=== PATIENT | female | born 1955 | race Caucasian/White ===

== ENCOUNTER 2018-12-25 18:13 | Emergency (ER) | payer BC ==
[2018-12-25] MEDS ORDERED: Aspirin 81 MG Tab.Chew PO ONE (18:30)
[2018-12-25] MEDS ORDERED: Sodium Chloride 0.9% 10 ML Syringe FLUSH PRN (18:30)
--- NOTE | 2018-12-25 18:45 | EDM.PDOC ---
ED HPI GENERAL MEDICAL PROBLEM - General Chief Complaint: Chest Pain Stated Complaint: CHEST PAIN/SOB Time Seen by Provider: 12/25/18 18:37 Source of Information: Reports: Patient, RN Notes Reviewed - History of Present Illness INITIAL COMMENTS - FREE TEXT/NARRATIVE: 63-year-old female comes in with history of achy chest discomfort for the past 4 days. She describes this as a mild ache left anterior chest that has become somewhat more bothersome today and then now some radiation to her left posterior shoulder blade area. The pain has not been severe she states she might be slightly short of breath. No cough fever or chills. No abdominal pain nausea vomiting. No history of hypertension, diabetes or known heart disease. She does not smoke. Left Chest Pain Score (Numeric/FACES): 3 - Related Data Allergies Allergy/AdvReac Type Severity Reaction Status Date / Time Penicillins Allergy Other Verified 12/25/18 18:26 Past Medical History Cardiovascular History: Reports: High Cholesterol - Past Surgical History HEENT Surgical History: Reports: Naso-Sinus Surgery Female Surgical History: Reports: Hysterectomy Other Female Surgeries/Procedures: Uterine CA Social & Family History - Tobacco Use Smoking Status *Q: Never Smoker - Caffeine Use Caffeine Use: Reports: Coffee - Recreational Drug Use Recreational Drug Use: No ED ROS GENERAL - Review of Systems Review Of Systems: See Below Constitutional: Denies: Fever, Chills, Diaphoresis HEENT: Reports: No Symptoms Respiratory: Reports: Shortness of Breath (Slight). Denies: Pleuritic Chest Pain, Cough Cardiovascular: Reports: Chest Pain GI/Abdominal: Denies: Abdominal Pain, Nausea, Vomiting Musculoskeletal: Reports: Shoulder Pain. Denies: Neck Pain, Arm Pain (Posterior ), Leg Pain Skin: Reports: No Symptoms Neurological: Reports: No Symptoms ED EXAM, GENERAL - Physical Exam Exam: See Below General Appearance: Alert, No Apparent Distress Eye Exam: Bilateral Eye: PERRL Head: Atraumatic. No: Facial Swelling Neck: Supple, Full Range of Motion Respiratory/Chest: No Respiratory Distress, Lungs Clear, Normal Breath Sounds, Chest Non-Tender Cardiovascular: Regular Rate, Rhythm GI/Abdominal: Soft, Non-Tender. No: Guarding Back Exam: No: CVA Tenderness (L), CVA Tenderness (R) Extremities: Normal Inspection. No: Leg Pain, Increased Warmth, Redness Neurological: Alert, Oriented, No Motor/Sensory Deficits EKG INTERPRETATION EKG Date: 12/25/18 Rhythm: NSR [place]: Normal P-Wave: Present QRS: Normal ST-T: Normal Course - Vital Signs Last Recorded V/S: Last Vital Signs Temp 98.2 F 12/25/18 18:22 Pulse 89 12/25/18 18:22 Resp 18 12/25/18 18:22 BP 162/93 H 12/25/18 18:22 Pulse Ox 94 L 12/25/18 18:22 - Orders/Labs/Meds Orders: Active Orders 24 hr Category Date Time Status EKG 12 Lead [EKG Documentation Completion] [] STAT Care 12/25/18 18:36 Active Peripheral IV Care [RC] . DIRECTED Care 12/25/18 18:30 Active Peripheral IV Insertion Adult [OM.PC] Routine Oth 12/25/18 18:30 Ordered Labs: Laboratory Tests 12/25/18 12/25/18 Range/Units 18:50 18:50 WBC 9.84 (3.98-10.04) K/mm3 RBC 4.54 (3.98-5.22) M/mm3 Hgb 13.4 (11.2-15.7) gm/dl Hct 40.6 (34.1-44.9) % MCV 89.4 (79.4-94.8) fl MCH 29.5 (25.6-32.2) pg MCHC 33.0 (32.2-35.5) g/dl RDW Std Deviation 45.0 (36.4-46.3) fL Plt Count 288 (182-369) K/mm3 MPV 10.1 (9.4-12.3) fl Neut % (Auto) 69.8 (34.0-71.1) % Lymph % (Auto) 22.0 (19.3-51.7) % [place] % (Auto) 6.9 (4.7-12.5) % Eos % (Auto) 0.7 (0.7-5.8) Baso % (Auto) 0.5 (0.1-1.2) % Neut # (Auto) 6.87 H (1.56-6.13) K/mm3 Lymph # (Auto) 2.16 (1.18-3.74) K/mm3 [place] # (Auto) 0.68 H (0.24-0.36) K/mm3 Eos # (Auto) 0.07 (0.04-0.36) K/mm3 Baso # (Auto) 0.05 (0.01-0.08) K/mm3 Sodium 140 (136-145) mEq/L Potassium 3.6 (3.5-5.1) mEq/L Chloride 107 (98-107) mEq/L Carbon Dioxide 22 (21-32) mEq/L Anion Gap 14.6 (5-15) BUN 23 H (7-18) mg/dL Creatinine 1.0 (0.55-1.02) mg/dL Est Cr Clr Drug Dosing 55.31 mL/min Estimated GFR (MDRD) 56 (>60) mL/min BUN/Creatinine Ratio 23.0 H (14-18) Glucose 99 (80-115) mg/dL Calcium 9.5 (8.5-10.1) mg/dL Total Bilirubin 0.4 (0.2-1.0) mg/dL AST 18 (15-37) U/L ALT 29 (14-59) U/L Alkaline Phosphatase 111 (46-116) U/L Troponin I < 0.017 (0.00-0.056) ng/mL C-Reactive Protein 1.6 H* (<1.0) mg/dL Total Protein 7.4 (6.4-8.2) g/dl Albumin 3.7 (3.4-5.0) g/dl Globulin 3.7 gm/dL Albumin/Globulin Ratio 1.0 (1-2) Meds: Medications Discontinued Medications Generic Name Dose Route Start Last Admin Trade Name Freq PRN Reason Stop Dose Admin Aspirin 324 mg 12/25/18 18:30 12/25/18 19:34 Aspirin PO 12/25/18 18:31 324 mg ONETIME ONE Administration Sodium Chloride 10 ml 12/25/18 18:30 12/25/18 19:35 Saline Flush FLUSH 10 ml ASDIRECTED PRN Administration Keep Vein Open - Re-Assessments/Exams Free Text/Narrative Re-Assessment/Exam: 12/26/18 11:33. EKG was nl, CXR trop nl. She remained in sinus rythm, no ectopy, discharge instr. as documented. Departure - Departure Time of Disposition: 19:58 Disposition: Home, Self-Care 01 Condition: Fair Clinical Impression: Atypical chest pain Instructions: Nonspecific Chest Pain, [id number] Referrals: Aylin Nolasco MD [Primary Care Provider] - Forms: ED Department Discharge Additional Instructions: Advil or ibuprofen 2-3 times daily as needed for discomfort, you may also alternate ice and heat to chest wall as needed. See Dr. Orly Gonzales as planned. Return to ED as needed if symptoms worsening in any way - My Orders Last 24 Hours: My Active Orders 12/25/18 18:30 Peripheral IV Care [RC] . DIRECTED Peripheral IV Insertion Adult [OM.PC] Routine 12/25/18 18:36 EKG 12 Lead [EKG Documentation Completion] [RC] STAT - Assessment/Plan Last 24 Hours: My Active Orders 12/25/18 18:30 Peripheral IV Care [RC] . DIRECTED Peripheral IV Insertion Adult [OM.PC] Routine 12/25/18 18:36 EKG 12 Lead [EKG Documentation Completion] [RC] STAT
--- NOTE | 2018-12-26 10:16 | CR ---
Chest: Portable view of the chest was obtained. Comparison: No prior chest x-ray. Heart size and mediastinum are within normal limits for portable technique. Lungs are clear with no acute parenchymal change. Bony structures are grossly intact. Impression: 1. Nothing acute is seen on portable chest x-ray. Diagnostic code #1
== END 2018-12-25 20:10 | disposition home or self-care (01) ==
LOC: JD.ED 18:13
DX: R07.89 Other chest pain (principal); Z88.0 Allergy status to penicillin
CPT/HCPCS: 36415; 71045; 80053; 84484; 85025; 86140; 93005; 99285; A9270

== ENCOUNTER 2021-01-15 11:56 | Emergency (ER) | payer BC ==
[2021-01-15] MEDS ORDERED: Ondansetron 4 MG/2 ML SDV IVPUSH ONE (12:38)
[2021-01-15] MEDS ORDERED: Sodium Chloride 0.9% 10 ML Syringe FLUSH PRN (12:38)
[2021-01-15] MEDS ORDERED: Ketorolac 30 MG/ML SDV IVPUSH ONE (12:38)
--- NOTE | 2021-01-15 12:48 | EDM.PDOC ---
ED HPI GENERAL MEDICAL PROBLEM - General Chief Complaint: Syncope Stated Complaint: SYNCOPE YESTERDAY Time Seen by Provider: 01/15/21 12:22 Source of Information: Reports: Patient, RN Notes Reviewed History Limitations: Reports: No Limitations - History of Present Illness INITIAL COMMENTS - FREE TEXT/NARRATIVE: Patient is a 65-year-old female who presents to the ER with her for the evaluation of a syncopal episode yesterday. Patient states that she felt somewhat unwell at the beginning of the day yesterday, some slight nausea generalized body aches, and a slight cough. States she went to [place] at about 11 AM, and went to [facility] to pray and got a little bit lightheaded for which she states is not atypical for her. She states she made her way to the car, got in to the car and then did end up passing out. She states this has never happened before. She states that when she woke back up, her was concerned because her body stiffened a little bit, and he was not sure she was having any sort of seizure activity. States that when she woke back up, she knew exactly where she was, what was going on, and did not wet or soiled herself. She had a slight headache after that, with some associated nausea and states that she kind of just took it easy yesterday. She ate some crackers and a burger yesterday but still is feeling slightly nauseous, has a generalized headache, and other generalized symptoms today. Patient states she is not had any issues with low blood pressure, low heart rate, or any sort of low blood sugars that she is aware of. She does state that her daughter has been diagnosed with POTS, and she thinks that she very well could have something to this effect but has never had any sort of fast heart rhythm either. Primary care provider is Aylin Villalba. Patient also states she has not been vaccinated for COVID-19 but she does not think she has been around anyone that is been sick. 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 - Physical Exam Exam: See Below Exam Limited By: No Limitations General Appearance: Alert, WD/WN, No Apparent Distress Eye Exam: Bilateral Eye: EOMI, Normal Inspection, PERRL Head Exam: Atraumatic, Normocephalic Respiratory/Chest: No Respiratory Distress, Lungs Clear, Normal Breath Sounds, No Accessory Muscle Use, Chest Non-Tender Cardiovascular: Normal Peripheral Pulses, Regular Rate, Rhythm, No Edema GI/Abdominal: Normal Bowel Sounds, Non-Tender, No Distention, No Mass Neuro Exam (Abbreviated): Alert, Oriented, Normal Cognition, No Motor/Sensory Deficits Extremities: Normal Inspection, Normal Capillary Refill Psychiatric: Normal Affect, Normal Mood Skin Exam: Warm, Dry, Intact, Normal Color, No Rash Course - Vital Signs Last Recorded V/S: Last Vital Signs Temp 97.0 F 01/15/21 12:05 Pulse 90 01/15/21 12:05 Resp 20 01/15/21 12:05 BP 175/98 H 01/15/21 12:05 Pulse Ox 99 01/15/21 12:05 - Orders/Labs/Meds Orders: Active Orders 24 hr Category Date Time Status Holter Monitor 48 Hours [RC] .PRN Care 01/15/21 14:03 Ordered Peripheral IV Care [RC] . DIRECTED Care 01/15/21 12:38 Ordered Sodium Chloride 0.9% [Saline Flush] Med 01/15/21 12:38 Ordered 10 ml FLUSH ASDIRECTED PRN Peripheral IV Insertion Adult [OM.PC] Routine Oth 01/15/21 12:38 Ordered Medication Orders Sodium Chloride (Sodium Chloride 0.9% 10 Ml Syringe) 10 ml FLUSH ASDIRECTED PRN PRN Reason: Keep Vein Open Last Admin: 01/15/21 12:55 Dose: 10 ml Documented by: BRIGIDO Labs: Laboratory Tests 10/10/2901/15/21 01/15/21 Range/Units 12:20 12:39 12:39 WBC 6.65 (3.98-10.04) K/mm3 RBC 4.61 (3.98-5.22) M/mm3 Hgb 13.6 (11.2-15.7) gm/dl Hct 42.3 (34.1-44.9) % MCV 91.8 (79.4-94.8) fl MCH 29.5 (25.6-32.2) pg MCHC 32.2 (32.2-35.5) g/dl RDW Std Deviation 45.7 (36.4-46.3) fL Plt Count 262 (182-369) K/mm3 MPV 10.7 (9.4-12.3) fl Neut % (Auto) 66.6 (34.0-71.1) % Lymph % (Auto) 25.7 (19.3-51.7) % [place] % (Auto) 6.6 (4.7-12.5) % Eos % (Auto) 0.6 L (0.7-5.8) Baso % (Auto) 0.3 (0.1-1.2) % Neut # (Auto) 4.43 (1.56-6.13) K/mm3 Lymph # (Auto) 1.71 (1.18-3.74) K/mm3 [place] # (Auto) 0.44 H (0.24-0.36) K/mm3 Eos # (Auto) 0.04 (0.04-0.36) K/mm3 Baso # (Auto) 0.02 (0.01-0.08) K/mm3 PT 10.3 (9.7-12.0) SECONDS INR 0.93 Sodium (136-145) mEq/L Potassium (3.5-5.1) mEq/L Chloride (98-107) mEq/L Carbon Dioxide (21-32) mEq/L Anion Gap (5-15) BUN (7-18) mg/dL Creatinine (0.55-1.02) mg/dL Est Cr Clr Drug Dosing mL/min Estimated GFR (MDRD) (>60) mL/min BUN/Creatinine Ratio (14-18) Glucose (70-99) mg/dL Calcium (8.5-10.1) mg/dL Total Bilirubin (0.2-1.0) mg/dL AST (15-37) U/L ALT (14-59) U/L Alkaline Phosphatase (46-116) U/L C-Reactive Protein (<1.0) mg/dL Total Protein (6.4-8.2) g/dl Albumin (3.4-5.0) g/dl Globulin gm/dL Albumin/Globulin Ratio (1-2) SARS-CoV-2 RNA (IDANIA) Negative (NEGATIVE) 01/15/21 Range/Units 12:39 WBC (3.98-10.04) K/mm3 RBC (3.98-5.22) M/mm3 Hgb (11.2-15.7) gm/dl Hct (34.1-44.9) % MCV (79.4-94.8) fl MCH (25.6-32.2) pg MCHC (32.2-35.5) g/dl RDW Std Deviation (36.4-46.3) fL Plt Count (182-369) K/mm3 MPV (9.4-12.3) fl Neut % (Auto) (34.0-71.1) % Lymph % (Auto) (19.3-51.7) % [place] % (Auto) (4.7-12.5) % Eos % (Auto) (0.7-5.8) Baso % (Auto) (0.1-1.2) % Neut # (Auto) (1.56-6.13) K/mm3 Lymph # (Auto) (1.18-3.74) K/mm3 [place] # (Auto) (0.24-0.36) K/mm3 Eos # (Auto) (0.04-0.36) K/mm3 Baso # (Auto) (0.01-0.08) K/mm3 PT (9.7-12.0) SECONDS INR Sodium 140 (136-145) mEq/L Potassium 3.9 (3.5-5.1) mEq/L Chloride 105 (98-107) mEq/L Carbon Dioxide 25 (21-32) mEq/L Anion Gap 13.9 (5-15) BUN 20 H (7-18) mg/dL Creatinine 0.9 (0.55-1.02) mg/dL Est Cr Clr Drug Dosing 59.89 mL/min Estimated GFR (MDRD) > 60 (>60) mL/min BUN/Creatinine Ratio 22.2 H (14-18) Glucose 95 (70-99) mg/dL Calcium 9.3 (8.5-10.1) mg/dL Total Bilirubin 0.4 (0.2-1.0) mg/dL AST 16 (15-37) U/L ALT 31 (14-59) U/L Alkaline Phosphatase 102 (46-116) U/L C-Reactive Protein 1.0 (<1.0) mg/dL Total Protein 7.5 (6.4-8.2) g/dl Albumin 3.8 (3.4-5.0) g/dl Globulin 3.7 gm/dL Albumin/Globulin Ratio 1.0 (1-2) SARS-CoV-2 RNA (IDANIA) (NEGATIVE) Meds: Medications Generic Name Dose Route Start Last Admin Trade Name Freq PRN Reason Stop Dose Admin Sodium Chloride 10 ml 01/15/21 12:38 01/15/21 12:55 Sodium Chloride 0.9% 10 Ml Syringe FLUSH 10 ml ASDIRECTED PRN Administration Keep Vein Open Discontinued Medications Generic Name Dose Route Start Last Admin Trade Name Freq PRN Reason Stop Dose Admin Ketorolac Tromethamine 30 mg 01/15/21 12:38 01/15/21 12:55 Ketorolac 30 Mg/Ml Sdv IVPUSH 01/15/21 12:39 30 mg ONETIME ONE Administration Ondansetron HCl 4 mg 01/15/21 12:38 01/15/21 12:53 Ondansetron 4 Mg/2 Ml Sdv IVPUSH 01/15/21 12:39 4 mg ONETIME ONE Administration - Re-Assessments/Exams Free Text/Narrative Re-Assessment/Exam: 01/15/21 12:48 Patient presents to the ER for evaluation of her syncopal episode x1 yesterday. Patient has been swabbed for COVID-19, will get some basic labs for initial management. The patient states she did go to the [facility] drive-through testing site and her rapid test was negative for today's purposes. She will get some IV Toradol and IV Zofran for headache and nausea. 01/15/21 13:52 Patient's CBC and CMP are unremarkable, her COVID-19 screen was negative for today's purposes. Since she did have a rapid state test was negative, and a 1 hour PCR test that was negative at today's visit. I will try to have her quarantine herself away from others for the next few days and retest possibly Tuesday morning and see if she receives another negative test. For her syncopal episodes, nothing has been uncovered at today's visit that would point us in any one direction however with her daughter having been diagnosed with POTS we will go ahead and order a 48-hour Holter monitor to be obtained to see if there is anything on a cardiac standpoint that could explain what is going on. We will have her try to increase her fluid intake over the next few days and take it easy and have her follow-up next week if things are not much better. Departure - Departure Time of Disposition: 14:04 Disposition: Home, Self-Care 01 Condition: Good Clinical Impression: Viral URI Syncope Qualifiers: Syncope type: vasovagal syncope Qualified Code(s): R55 - Syncope and collapse - Discharge Information *PRESCRIPTION DRUG MONITORING PROGRAM REVIEWED*: No *COPY OF PRESCRIPTION DRUG MONITORING REPORT IN PATIENT ROSEMARIE: No Instructions: Syncope, [id number] Referrals: Aylin Nolasco MD [Primary Care Provider] - 1 Week (Late next week or early week of Jan 26) Forms: ED Department Discharge Additional Instructions: You were evaluated in the ER today for your syncopal episode, and multiple generalized symptoms. Your COVID-19 test did come back negative, but sometimes these are false negatives. These Covid screens are only about 60% accurate; and it is common to test negative initially but then test positive a few days later. Due to this, we recommend that you try to isolate yourself away from others, and get retested for COVID-19 in about 3 or 4 days. There are multiple sites that can do this, there is a drive-through clinic by the [facility], there is a walk-in clinic and our Covid clinic that can help you with these. Your laboratory evaluation demonstrated no acute abnormalities. There is no good answer as to what caused your syncope yesterday while you are in charge. However you have been sent home with a Holter monitor for ongoing management to monitor your heart rhythm over the next 48 hours to see if it was or could have been related to cardiac issues. You will need to follow-up with your regular care provider in a roughly 1 week's time, preferably late next week or early the week of January 26 for management of this. I would recommend that you try to get another Covid screen on Tuesday, January 19, 2021. If you should receive a third negative result, then COVID is unlikely the cause of this as well. Continue all other medications as previously prescribed. Do not hesitate to return to the ER at any time if symptoms change or worsen. Sepsis Event Note (ED) - Evaluation Sepsis Screening Result: No Definite Risk - Focused Exam Vital Signs: Vital Signs Temp Pulse Resp BP Pulse Ox 01/15/21 12:05 97.0 F 90 20 175/98 H 99 - My Orders Last 24 Hours: My Active Orders 01/15/21 12:38 Peripheral IV Care [RC] . DIRECTED Sodium Chloride 0.9% [Saline Flush] 10 ml FLUSH ASDIRECTED PRN Peripheral IV Insertion Adult [OM.PC] Routine 01/15/21 14:03 Holter Monitor 48 Hours [RC] .PRN - Assessment/Plan Last 24 Hours: My Active Orders 01/15/21 12:38 Peripheral IV Care [RC] . DIRECTED Sodium Chloride 0.9% [Saline Flush] 10 ml FLUSH ASDIRECTED PRN Peripheral IV Insertion Adult [OM.PC] Routine 01/15/21 14:03 Holter Monitor 48 Hours [RC] .PRN
== END 2021-01-15 14:25 | disposition home or self-care (01) ==
LOC: JD.ED 11:56
DX: R55 Syncope and collapse (principal); J06.9 Acute upper respiratory infection, unspecified; Z88.0 Allergy status to penicillin; Z20.822 Contact with and (suspected) exposure to COVID-19
CPT/HCPCS: 36415; 80053; 85025; 85610; 86140; 87635; 93225; 93226; 96374; 96375; 99284; J1885; J2405; U0002

== ENCOUNTER 2022-08-28 11:27 | Emergency (ER) | payer MEDICARE ==
[2022-08-28] MEDS ORDERED: Iopamidol 755 Mg/ML 100 ML Bottle IVPUSH ONE (11:57)
[2022-08-28] MEDS ORDERED: Sodium Chloride 0.9% 100 ML IV SCH (12:00)
[2022-08-28] MEDS: Sodium Chloride 0.9% 10 ML Syringe FLUSH PRN ×2 (12:00→12:21)
== END 2022-08-28 14:00 | disposition home or self-care (01) ==
LOC: JD.ED 11:27
DX: J34.89 Other specified disorders of nose and nasal sinuses (principal); K86.89 Other specified diseases of pancreas; Z88.0 Allergy status to penicillin
CPT/HCPCS: 70486; 71275; 99285; J3490; Q9967; 99283

== ENCOUNTER 2024-10-29 15:11 | Emergency (ER) | payer MEDICARE, OTHER ==
[2024-10-29] MEDS ORDERED: Sodium Chloride 0.9% 10 ML Syringe FLUSH PRN (15:53)
[2024-10-29 17:00] LABS: BASOPHILS ABSOLUTE AUTO 0.1 K/mm3 (0.0-0.2); BASOPHILS PERCENT AUTO 0.7 % (0.0-1.0); EOSINOPHILS ABSOLUTE AUTO 0.1 K/mm3 (0.0-0.4); EOSINOPHILS PERCENT AUTO 1.7 % (0.0-6.0); IMMATURE GRAN ABSOLUTE AUTO 0.02 K/mm3 (0.00-0.05); IMMATURE GRAN PERCENT AUTO 0.2 % (0.0-0.4); LYMPHOCYTES ABSOLUTE AUTO 1.9 K/mm3 (1.0-4.8); LYMPHOCYTES PERCENT AUTO 23.4 % (24.0-44.0); MEAN PLATELET VOLUME 10.6 fl (9.4-12.3); MONOCYTES ABSOLUTE AUTO 0.5 K/mm3 (0.0-0.8); MONOCYTES PERCENT AUTO 6.1 % (0.0-8.0); NEUTROPHILS ABSOLUTE AUTO 5.6 K/mm3 (1.8-7.7); NEUTROPHILS PERCENT AUTO 67.9 % (41.0-71.0); NRBC ABSOLUTE 0.00 (0.00-0.02); NRBC PERCENT 0.0 % (0.0-0.2); PLATELET COUNT,PLT 237 K/mm3 (150-400); RED BLOOD CELL COUNT 4.53 M/mm3 (4.10-5.30); WHITE BLOOD CELL COUNT,WBC 8.21 K/mm3 (3.9-11.3)
[2024-10-29] MEDS ORDERED: Iopamidol 612 MG/ML 100 ML Bottle IVPUSH ONE (17:27)
[2024-10-29 17:39] LABS: A/G RATIO 1.0 (1-2); ALANINE AMINOTRANSFERASE,ALT 30.0 U/L (14-59); ASPARTATE AMNIOTRANSFERASE,AST 21.0 U/L (15-37); BILIRUBIN TOTAL 0.5 mg/dL (0.2-1.0); BLOOD UREA NITROGEN,BUN 22.0 mg/dL (7-18); CARBON DIOXIDE,CO2 27.0 mEq/L (21-32); CHLORIDE,CL 106.0 mEq/L (98-107); CREATININE 0.3 mg/dL (0.55-1.02); EST CRCL DRUG DOSING (CG) 170.35 mL/min; ESTIMATED GFR 116.0 mL/min (>60); GLUCOSE RANDOM 88.0 mg/dL (70-99); POTASSIUM,K 4.6 mEq/L (3.5-5.1); PROTEIN TOTAL,TP 7.5 g/dl (6.4-8.2); SODIUM,NA 142.0 mEq/L (136-145); TROPONIN I HIGH SENSITIVITY 4.0 pg/mL (<=51)
== END 2024-10-29 18:24 | disposition home or self-care (01) ==
LOC: JD.ED 15:11
DX: R22.1 Localized swelling, mass and lump, neck (principal); E04.1 Nontoxic single thyroid nodule; E78.00 Pure hypercholesterolemia, unspecified; M54.6 Pain in thoracic spine; Z88.0 Allergy status to penicillin; Z90.710 Acquired absence of both cervix and uterus
CPT/HCPCS: 36415; 70491; 70491-26; 71046; 71046-26; 80053; 84484; 85025; 93005; 99284